=== PATIENT | female | born 1970 | race Caucasian/White ===

== ENCOUNTER 2019-07-12 14:38 | Inpatient (IN) | payer MEDICAID ==
[~2019-07-12] VITALS: Ht 162.6 cm; Wt 79.4 kg
[2019-07-12 15:10] LABS: BASOPHILS 0.7 % (0-2); EOSINOPHILS 12.8 % (0-7); HEMATOCRIT 42.4 % (36.0-48.0); HEMOGLOBIN 14.5 g/dL (12-16); IMMATURE GRANULOCYTES 0.1 % (0-5); LYMPHOCYTES 30.2 % (15-50); MCH 32.8 pg (26.0-34.0); MCHC 34.2 g/dL (31.0-37.0); MCV 95.9 fL (80.0-100.0); MEAN PLATELET VOLUME 10.2 fL (7.4-10.4); MONOCYTES 9.2 % (2-11); PLATELET COUNT 249 10x3/uL (130-400); RBC 4.42 10x6/uL (4.00-5.40); RDW 12.9 % (11.5-14.5); WBC 7.1 10x3/uL (4.8-10.8)
[2019-07-12 15:31] LABS: INR 0.86 (0.85-1.17); PROTIME 11.7 SECONDS (11.6-15.0)
[2019-07-12 15:36] LABS: CALC OSMOLALITY 282 mosm/kg (275-300); CALCIUM 9.5 mg/dL (8.5-10.1); CARBON DIOXIDE 26.6 mmol/L (21.0-32.0); CHLORIDE - SERUM 104 mmol/L (98-107); CREATININE - SERUM 0.8 mg/dL (0.6-1.3); POTASSIUM - SERUM 3.7 mmol/L (3.5-5.1); SODIUM 141 mmol/L (136-145); UREA NITROGEN 13 mg/dL (7-18); eGFR NON AFRICAN AMERICAN 80 mL/min (90-120)
[2019-07-12 15:39] LABS: GLUCOSE 127 mg/dL (74-106)
[2019-07-12 15:41] LABS: ALBUMIN 3.7 g/dL (3.4-5.0); ALKALINE PHOSPHATASE 129 U/L (30-120); ALT (SGPT) 29 U/L (10-68); PROTEIN - SERUM 7.4 g/dL (6.4-8.2)
[2019-07-12 18:08] VITALS: BP 125/82
[2019-07-12 19:41] VITALS: BP 131/107
--- NOTE | 2019-07-12 21:30 | NUR ---
RECIEVED TO FLOOR VIA WHEELCHAIR ACCOMPANIED BY STAFF. AMBULATED INDEPENDENTLY TO BED. LABORED BRATHING ON 3L O2. STATES SHE'S DOING A LOT BETTER THAN SHE WAS WHEN SHE FIRST ENTERED THE ER. REQUESTS CRACKERS, JELLO, AND WATER. VS STABLE. NO FURTHER NEEDS AT THIS TIME. WILL CONTINUE TO MONITOR.
[2019-07-12 22:15] VITALS: BP 130/66; BMI 30.1
--- NOTE | 2019-07-12 22:21 | NUR ---
ADMISSION ASSESSMENT COMPLETE. CARE PLANS INITIATED AND PRIORITIZED.
[2019-07-13 01:26] VITALS: BP 140/51
[2019-07-13 04:23] LABS: BASOPHILS 0.1 % (0-2); EOSINOPHILS 0.1 % (0-7); HEMATOCRIT 41.3 % (36.0-48.0); IMMATURE GRANULOCYTES 0.2 % (0-5); LYMPHOCYTES 5.7 % (15-50); MCH 32.8 pg (26.0-34.0); MCHC 33.9 g/dL (31.0-37.0); MCV 96.7 fL (80.0-100.0); MEAN PLATELET VOLUME 10.2 fL (7.4-10.4); MONOCYTES 0.7 % (2-11); NEUTROPHILS 93.2 % (40-80); PLATELET COUNT 269 10x3/uL (130-400); RBC 4.27 10x6/uL (4.00-5.40); RDW 13.1 % (11.5-14.5)
[2019-07-13 04:38] LABS: WBC 11.5 10x3/uL (4.8-10.8)
[2019-07-13 04:42] LABS: CALC OSMOLALITY 287 mosm/kg (275-300); CALCIUM 9.7 mg/dL (8.5-10.1); CARBON DIOXIDE 24.2 mmol/L (21.0-32.0); CHLORIDE - SERUM 107 mmol/L (98-107); CREATININE - SERUM 0.8 mg/dL (0.6-1.3); GLUCOSE 140 mg/dL (74-106); SODIUM 144 mmol/L (136-145); UREA NITROGEN 11 mg/dL (7-18); eGFR NON AFRICAN AMERICAN 80 mL/min (90-120)
[2019-07-13 05:02] LABS: POTASSIUM - SERUM 4.3 mmol/L (3.5-5.1)
[2019-07-13 05:30] VITALS: BP 134/93
[2019-07-13 09:28] VITALS: BP 142/77
--- NOTE | 2019-07-13 09:42 | NUR ---
PT RESTING WITH EYES CLOSED. PT STARTLES AWAKE WITH NAME CALLED. O2 @ 6L HI DON IN PLACE. O2 SAT 97% AT THIS TIME. PT DENIES PAIN AT THIS TIME. IV TO LEFT AC WITH NS @ 100ML/HR INFUSING VIA PUMP. SITE WITHOUT REDNESS OR EDEMA. PT DENIES FURTHER NEEDS AT THIS TIME. CL WITHIN REACH. ENCOURAGED TO CALL WITH NEEDS. CONTINUE POC
[2019-07-13 10:13] LABS: INR 0.97 (0.85-1.17); PROTIME 12.9 SECONDS (11.6-15.0)
[2019-07-13 10:15] LABS: D-DIMER-QUANTITATIVE < 0.27 ug/mLFEU (0.20-0.54)
[2019-07-13 12:45] VITALS: BP 142/83
[2019-07-13 13:05] VITALS: Ht 162.6 cm; Wt 79.4 kg
[2019-07-13 17:17] VITALS: BP 136/76
--- NOTE | 2019-07-13 19:30 | NUR ---
SUPINE IN BED, 4L HF O2 IN USE VIA NASAL CANNULA. CHEST RISE NOTED, RESPIRATIONS EVEN AND NON LABORED. NO VISIBLE S/SX OF DISTRESS, WILL CONTINUE TO MONITOR.
[2019-07-14 02:53] VITALS: BP 118/97
--- NOTE | 2019-07-14 04:18 | NUR ---
I have reviewed this patient and I concur with the Shift Assessment completed by the Licensed Practical Nurse today this shift.
[2019-07-14 05:57] VITALS: BP 125/64
[2019-07-14 06:44] LABS: CALC OSMOLALITY 288 mosm/kg (275-300); CALCIUM 9.2 mg/dL (8.5-10.1); CARBON DIOXIDE 25.3 mmol/L (21.0-32.0); CHLORIDE - SERUM 107 mmol/L (98-107); CREATININE - SERUM 0.7 mg/dL (0.6-1.3); GLUCOSE 125 mg/dL (74-106); MAGNESIUM - SERUM 2.1 mg/dL (1.8-2.4); PHOSPHOROUS 4.1 mg/dL (2.5-4.9); POTASSIUM - SERUM 4.5 mmol/L (3.5-5.1); SODIUM 143 mmol/L (136-145); eGFR NON AFRICAN AMERICAN > 90 mL/min (90-120)
[2019-07-14 07:05] LABS: UREA NITROGEN 22 mg/dL (7-18)
[2019-07-14 07:38] LABS: HEMATOCRIT 38.9 % (36.0-48.0); HEMOGLOBIN 12.7 g/dL (12-16); LYMPHOCYTES 7.7 % (15-50); MCH 32.6 pg (26.0-34.0); MCHC 32.6 g/dL (31.0-37.0); MEAN PLATELET VOLUME 11.3 fL (7.4-10.4); NEUTROPHILS 90.6 % (40-80); RBC 3.89 10x6/uL (4.00-5.40); RDW 12.9 % (11.5-14.5)
[2019-07-14 07:46] LABS: PLATELET COUNT 200 10x3/uL (130-400)
[2019-07-14 09:04] VITALS: BP 130/75
--- NOTE | 2019-07-14 10:57 | NUR ---
RESTING IN BED, NO DISTRESS NOTED, O2 PER NC AT 6L, SLEEPING TODAY, CONT TO MONITOR
[2019-07-14 15:49] LABS: BILIRUBIN NEGATIVE (NEGATIVE); GLUCOSE NEGATIVE (NEGATIVE); KETONE NEGATIVE (NEGATIVE); NITRITE NEGATIVE (NEGATIVE); UROBILINOGEN NORMAL (NORMAL)
[2019-07-14 17:51] VITALS: BP 153/58
[2019-07-14 20:00] VITALS: BP 140/57
[2019-07-15] VITALS: BP 148/72
[2019-07-15 04:00] VITALS: BP 140/53
--- NOTE | 2019-07-15 04:12 | NUR ---
I have reviewed this patient and I concur with the Shift Assessment completed by the Licensed Practical Nurse today this shift.
[2019-07-15 04:56] LABS: BASOPHILS 0 % (0-2); EOSINOPHILS 0 % (0-7); HEMATOCRIT 36.8 % (36.0-48.0); IMMATURE GRANULOCYTES 0.4 % (0-5); MCH 32.1 pg (26.0-34.0); MCHC 32.6 g/dL (31.0-37.0); MCV 98.4 fL (80.0-100.0); MEAN PLATELET VOLUME 10.7 fL (7.4-10.4); MONOCYTES 3.1 % (2-11); NEUTROPHILS 90.5 % (40-80); PLATELET COUNT 210 10x3/uL (130-400); RBC 3.74 10x6/uL (4.00-5.40)
[2019-07-15 05:04] LABS: ANION GAP 10.8 mmol/L (8-16); CARBON DIOXIDE 29.4 mmol/L (21.0-32.0); POTASSIUM - SERUM 4.2 mmol/L (3.5-5.1); WBC 9.4 10x3/uL (4.8-10.8)
[2019-07-15 05:09] LABS: CREATININE - SERUM 0.9 mg/dL (0.6-1.3); PHOSPHOROUS 2.9 mg/dL (2.5-4.9)
[2019-07-15 09:16] VITALS: BP 128/68
--- NOTE | 2019-07-15 10:24 | NUR ---
ASSESSMENT PER FLOW SHEET. PT IS WITHOUT DISTRESS.MONITOR FOR NEEDS
[2019-07-15 12:20] VITALS: BP 136/78
[2019-07-15 20:00] VITALS: BP 157/68
--- NOTE | 2019-07-15 21:00 | NUR ---
A&O X 4. SPUTUM COLLECTION CUP PUT IN ROOM. PT REPORTS PAIN OF 3-4/10 OF A HEADACHE. REPORTS BREATHING HAS BECOME EASIER AND IS WHEEZING LESS. WHEEZING STILL HEARD IN BILAT UPPER LOBES. WILL CONTINUE TO MONITOR. 2L O2 IN USE.
[2019-07-16] VITALS: BP 144/74
[2019-07-16 04:00] VITALS: BP 143/64
[2019-07-16 04:16] LABS: BASOPHILS 0 % (0-2); EOSINOPHILS 0 % (0-7); HEMATOCRIT 36.4 % (36.0-48.0); IMMATURE GRANULOCYTES 0.9 % (0-5); LYMPHOCYTES 8.9 % (15-50); MCV 97.1 fL (80.0-100.0); MEAN PLATELET VOLUME 10.5 fL (7.4-10.4); MONOCYTES 4.3 % (2-11); NEUTROPHILS 85.9 % (40-80); PLATELET COUNT 214 10x3/uL (130-400); RBC 3.75 10x6/uL (4.00-5.40); RDW 12.6 % (11.5-14.5)
[2019-07-16 04:23] LABS: WBC 6.7 10x3/uL (4.8-10.8)
[2019-07-16 04:36] LABS: ANION GAP 9.4 mmol/L (8-16); CALCIUM 8.8 mg/dL (8.5-10.1); CARBON DIOXIDE 29.4 mmol/L (21.0-32.0); MAGNESIUM - SERUM 1.9 mg/dL (1.8-2.4); PHOSPHOROUS 3.4 mg/dL (2.5-4.9); POTASSIUM - SERUM 3.8 mmol/L (3.5-5.1)
--- NOTE | 2019-07-16 08:47 | MORECARE ---
CASE MANAGEMENT DISCHARGE SUMMARY PATIENT: ANNE BONILLA UNIT: [id number] ADM DATE: 07/12/19 AGE: 49 : 66 SEX: F ROOM/BED: D.2215 AUTHOR: SALVADOR,DOC PHYSICIAN: REFERRING PHYSICIAN: AMANDA DALE MD DATE OF SERVICE: 07/16/19 Discharge Plan Patient Name: ANNE BONILLA Facility: [facility]:[place] : 1970 Planned Disposition: Home or Self Care Anticipated Discharge Date: Discharge Date: Expected LOS: Initial Reviewer: [email or web address] Initial Review Date: 07/12/2019 Generated: 07/16/19 9:47 am Comments DCP- Discharge Planning Updated by [email or web address]: Lauren Cortez on 07/16/19 7:[address] Patient Name: ANNE BONILLA Admission Status: ER Accout number: [id number] Admission Date: 07-12-2019 : 1970 Admission Diagnosis: Attending: AMANDA DALE Current LOS: 4 Anticipated DC Date: Planned Disposition: Home or Self Care Primary Insurance: MEDICAID [place] PENDING Discharge Planning Comments: CM met with patient to complete initial dc planning assessment. CM educated patient on the CM role and verbal consent given by patient to complete assessment. Patient lives at home with her boyfriend who will be her van cdl driver home. At discharge patient plans to return home and feels this is a safe discharge. CM discussed availability of home health, rehab services, and medical equipment. She does not have any insurance and she states that she does not have any money. She said that she will need a nebulizer when she is discharged. I explained to her that the cheapest melo jacome is around 40.00. She said that she could not pay for that. She is not working neither is her boyfriend. Patient denied known discharge needs at this time. CM will continue to follow and will assist as needed with dc plans/needs. Real Estate Economist: Lauren Cortez DCPIA - Discharge Planning Initial Assessment Updated by [email or web address]: Lauren Cortez on 07/16/19 8:43 am * Is the patient Alert and Oriented? Yes * How many steps to enter\exit or inside your home? * PCP NONE * [facility] [address] * Preadmission Environment Home with Family * ADLs Independent * Equipment Nebulizer * List name and contact numbers for known caregivers / representatives who currently or will assist patient after discharge: MANAV (BOYFRIEND) ANUPAMA (DAUGHTER) [phone] * Verbal permission to speak to the caregivers and representatives has been obtained from the patient. N/A * Community resources currently utilized None * Additional services required to return to the preadmission environment? No * Can the patient safely return to the preadmission environment? Yes * Has this patient been hospitalized within the prior 30 days at any hospital? No Patient Name: ANNE BONILLA Page [id number] at 0847 All edits/amendments must be made on the electronic document DICTATION DATE: 07/16/19846 MATCHER LEATHER PARTS: AVILA 07/16/19 RPT#: [id number] DC DATE: STATUS: ADM IN [facility] [address] [place] [address] END OF REPORT
[2019-07-16 09:48] VITALS: BP 149/69
--- NOTE | 2019-07-16 09:58 | NUR ---
ALERT AND ORIENTED. LUNGS CLEAR BILATERALLY. HEART SOUNDS S1 AND S2 HEARD IN ALL ROBELS. BOWEL SOUNDS ACTIVE X 4. SKIN INTACT WITHOUT REDNESS. IV TO LFA PATENT WIHTOUT REDNESS. DENIES PAIN. DENIES NEEDS. BED LOW.CALL MEDRANO AND PERSONAL ITEMS IN REACH. WILL CONTINUE TO MONITOR.
--- NOTE | 2019-07-16 12:58 | NUR ---
RESTING IN BED. DENIES NEEDS. WILL CONTINUE TO MONITOR.
--- NOTE | 2019-07-16 13:09 | NUR ---
Nutrition follow-up: Diet: Low sodium PO intake 100% of all meals Labs reviewed Wt: 175# Will continue to provide food choices with selective menus and honor food preferences. RDN following.
[2019-07-16 13:40] VITALS: BP 148/72
[2019-07-16 16:28] VITALS: BP 129/63
[2019-07-17 04:00] VITALS: BP 136/95
[2019-07-17 07:23] LABS: BASOPHILS 0.1 % (0-2); EOSINOPHILS 0 % (0-7); HEMATOCRIT 38.2 % (36.0-48.0); HEMOGLOBIN 12.9 g/dL (12-16); LYMPHOCYTES 14.1 % (15-50); MCH 32.2 pg (26.0-34.0); MCHC 33.8 g/dL (31.0-37.0); MCV 95.3 fL (80.0-100.0); MONOCYTES 6.7 % (2-11); NEUTROPHILS 77.1 % (40-80); PLATELET COUNT 209 10x3/uL (130-400); RBC 4.01 10x6/uL (4.00-5.40); RDW 12.4 % (11.5-14.5); WBC 7.9 10x3/uL (4.8-10.8)
--- NOTE | 2019-07-17 08:00 | NUR ---
ASSESSMENT PER FLOW SHEET. PT IS WITHOUT DISRESS.CALL LIGHT IN REACH
[2019-07-17 08:06] LABS: CALCIUM 9.1 mg/dL (8.5-10.1); CARBON DIOXIDE 28.7 mmol/L (21.0-32.0); CREATININE - SERUM 0.9 mg/dL (0.6-1.3); MAGNESIUM - SERUM 1.9 mg/dL (1.8-2.4); PHOSPHOROUS 3.7 mg/dL (2.5-4.9); POTASSIUM - SERUM 3.7 mmol/L (3.5-5.1)
[2019-07-17 08:28] VITALS: BP 132/65
[2019-07-17 14:07] VITALS: BP 123/75
[2019-07-17 16:19] VITALS: BP 134/88
--- NOTE | 2019-07-17 17:42 | NUR ---
REMAINS WITHOUT DISTRESS,WITHOUT CHANGE.CONT PLAN OF CARE
[2019-07-17 23:31] VITALS: BP 144/88
[2019-07-18 03:48] VITALS: BP 153/85
[2019-07-18 04:00] VITALS: BP 138/60
[2019-07-18 07:05] LABS: HEMATOCRIT 36.8 % (36.0-48.0); HEMOGLOBIN 12.5 g/dL (12-16); MCH 32.6 pg (26.0-34.0); MCV 96.1 fL (80.0-100.0); MEAN PLATELET VOLUME 10.2 fL (7.4-10.4); PLATELET COUNT 216 10x3/uL (130-400); RBC 3.83 10x6/uL (4.00-5.40); RDW 12.7 % (11.5-14.5)
[2019-07-18 07:14] LABS: ANION GAP 7.9 mmol/L (8-16); CALCIUM 8.4 mg/dL (8.5-10.1); CARBON DIOXIDE 31.5 mmol/L (21.0-32.0); CREATININE - SERUM 0.9 mg/dL (0.6-1.3); MAGNESIUM - SERUM 1.8 mg/dL (1.8-2.4); PHOSPHOROUS 3.7 mg/dL (2.5-4.9); POTASSIUM - SERUM 3.4 mmol/L (3.5-5.1)
--- NOTE | 2019-07-18 09:00 | NUR ---
ASSESSMENT PER FLOW SHEET. PT IS WITHOUT DISTRESS.CALL LIGHT IN REACH.
[2019-07-18 09:02] LABS: EOSINOPHILS 1 % (0-7); LYMPHOCYTES 31 % (15-50); MONOCYTES 8 % (2-11); NEUTROPHILS 55 % (40-80); PLATELET ESTIMATE NORMAL
[2019-07-18 09:15] VITALS: BP 123/67
[2019-07-18] MEDS ORDERED: PREDNISONE20 MG PO (11:41)
[2019-07-18] MEDS ORDERED: VIBRAMYCIN 100100 MG PO (11:42)
[2019-07-18] MEDS ORDERED: MUCINEX600 MG PO (11:43)
[2019-07-18] MEDS ORDERED: FLUTICASONE PRO16 GM NASAL (11:44)
[2019-07-18] MEDS ORDERED: IPRAT-ALBUT 0.5-3 ML UPD (11:44)
[2019-07-18] MEDS ORDERED: SYMBICORT 16010.2 GM INH (11:50)
--- NOTE | 2019-07-18 13:19 | NUR ---
IV OUT CATH TIP INTACT
--- NOTE | 2019-07-18 13:51 | NUR ---
DISCHARGE INSTRUCTIONS,STATES UNDERSTANDING.LEFT UNIT VIA WHEELCHAIR FOR TRANSPORT HOME
--- NOTE | 2019-07-18 15:02 | MORECARE ---
CASE MANAGEMENT DISCHARGE SUMMARY PATIENT: ANNE BONILLA UNIT: [id number] ADM DATE: 07/12/19 AGE: 49 : 66 SEX: F ROOM/BED: D.2215 AUTHOR: SALVADOR,DOC PHYSICIAN: REFERRING PHYSICIAN: AMANDA DALE MD DATE OF SERVICE: 07/18/19 Discharge Plan Patient Name: ANNE BONILLA Facility: [facility]:[place] : 1970 Planned Disposition: Home or Self Care Anticipated Discharge Date: Discharge Date: 07/18/2019 Expected LOS: Initial Reviewer: [email or web address] Initial Review Date: 07/12/2019 Generated: 07/18/19 4:01 pm Comments DCP- Discharge Planning Updated by [email or web address]: Lauren Cortez on 07/16/19 7:[address] Patient Name: ANNE BONILLA Admission Status: ER Accout number: [id number] Admission Date: 07-12-2019 : 1970 Admission Diagnosis: Attending: AMANDA DALE Current LOS: 4 Anticipated DC Date: Planned Disposition: Home or Self Care Primary Insurance: MEDICAID [place] PENDING Discharge Planning Comments: CM met with patient to complete initial dc planning assessment. CM educated patient on the CM role and verbal consent given by patient to complete assessment. Patient lives at home with her boyfriend who will be her driver's license examiner home. At discharge patient plans to return home and feels this is a safe discharge. CM discussed availability of home health, rehab services, and medical equipment. She does not have any insurance and she states that she does not have any money. She said that she will need a nebulizer when she is discharged. I explained to her that the cheapest melo jacome is around 40.00. She said that she could not pay for that. She is not working neither is her boyfriend. Patient denied known discharge needs at this time. CM will continue to follow and will assist as needed with dc plans/needs. Radio Communications Superintendent: Lauren Cortez DCPIA - Discharge Planning Initial Assessment Updated by [email or web address]: Lauren Cortez on 07/16/19 8:43 am * Is the patient Alert and Oriented? Yes * How many steps to enter\exit or inside your home? * PCP NONE * [facility] [address] * Preadmission Environment Home with Family * ADLs Independent * Equipment Nebulizer * List name and contact numbers for known caregivers / representatives who currently or will assist patient after discharge: MANAV (BOYFRIEND) ANUPAMA (DAUGHTER) [phone] * Verbal permission to speak to the caregivers and representatives has been obtained from the patient. N/A * Community resources currently utilized None * Additional services required to return to the preadmission environment? No * Can the patient safely return to the preadmission environment? Yes * Has this patient been hospitalized within the prior 30 days at any hospital? No Last DP export: 07/16/19 7:47 a Patient Name: ANNE BONILLA Page [id number] at 1502 All edits/amendments must be made on the electronic document DICTATION DATE: 07/18/19 1501 INTELLIGENCE OPERATIONS SPECIALIST: AVILA 07/18/19 1501 RPT#: [id number] DC DATE:07/18/19 STATUS: DIS IN [facility] [address] [place] [address] END OF REPORT
== END 2019-07-18 13:52 | disposition home or self-care (01) | DRG 189 ==
LOC: D.ER 14:38 → D.MS 17:10
PROVIDERS: Family Medicine; ADMIT Family Medicine; ATTEND Family Medicine
DX: J96.01 Acute respiratory failure with hypoxia (principal); J44.1 Chronic obstructive pulmonary disease with (acute) exacerbation; F17.203 Nicotine dependence unspecified, with withdrawal; J44.0 Chronic obstructive pulmonary disease with (acute) lower respiratory infection; D72.1 Eosinophilia; J20.9 Acute bronchitis, unspecified; K21.9 Gastro-esophageal reflux disease without esophagitis